=== PATIENT | female | born 1995 | race Caucasian/White ===

== ENCOUNTER → 2018-03-11 14:57 | Outpatient (CLI) | payer BC, SELFPAY | PROVIDERS: Visit Provider Obstetrics & Gynecology | DX: R30.0 Dysuria (principal) | CPT/HCPCS: 87086; 87088 ==

== ENCOUNTER → 2018-03-25 13:38 | Outpatient (CLI) | payer BC, SELFPAY | PROVIDERS: Visit Provider Obstetrics & Gynecology | DX: N39.0 Urinary tract infection, site not specified (principal) | CPT/HCPCS: 87077; 87086; 87088; 87186 ==

== ENCOUNTER → 2018-05-05 13:55 | Outpatient (CLI) | payer BC, SELFPAY | PROVIDERS: Visit Provider Obstetrics & Gynecology | DX: R30.0 Dysuria (principal); Z87.440 Personal history of urinary (tract) infections | CPT/HCPCS: 87086; 87088 ==

== ENCOUNTER 2020-06-24 23:55 | Emergency (ER) | payer BC, SELFPAY ==
[2020-06-24 23:55] VITALS: BP 119/76; PULSE 67; RESP 16; TEMP 37.1; O2SAT 98; BMI 20.2
--- NOTE | 2020-06-24 23:59 | RAD_ITS ---
STUDY: X-RAY RIGHT FOOT, TOE REASON FOR EXAM: Female, 24 years old. RIGHT 4TH TOE PAIN AFTER DROPPING HAMMER ON IT TECHNIQUE: 3 view(s) of the toe were obtained. COMPARISON: None. FINDINGS: Normal visualized metatarsus. Normal metatarsophalangeal (M.T.P) joint. Normal interphalangeal joints. There is a minimally displaced fracture of the tip of the tuft of the distal phalanx of the fourth digit. There is soft tissue edema. RAD/Toe(s) Min 2 Views IMPRESSION: There is a minimally displaced fracture of the tip of the tuft of the distal phalanx of the fourth digit. There is soft tissue edema. Electronically Signed: Kerry Lezama MD at 1:07 EDT Tel , Service support ,
--- NOTE | 2020-06-25 00:34 | ED.DCSUM_ITS ---
- ER Visit Summary Date of Service: 06/25/20 Chief Complaint: Right fourth toe pain History of Present Illness: The patient is a 24 F presenting with right fourth toe pain. Patient states she dropped a hammer on her right 4th toe several hours ago. Her tetanus immunization is up-to-date. No other injuries. Physical Examination: Vitals are stable. Patient is afebrile. Alert no acute distress. HEENT exam is unremarkable. Lungs are clear and equal bilaterally. Heart is regular rate and rhythm. Extremities right fourth toe tenderness with dorsal abrasion. Nail is intact. Normal cap refill Skin is warm and dry. No focal neurologic deficit. Remainder of exam is unremarkable. Emergency Department Course and Treatment: X-ray right toes shows there is a minimally displaced fracture of the tip of the tuft of the distal phalanx of the fourth digit. There is soft tissue edema. Toes are thomas taped and she was given a postop shoe. She is given prescription for Naprosyn. Advised to ice and elevate. Disposition: Discharge home Impression: Right fourth toe fracture This note was generated with [employer] dictation software. It may contain incorrect words, spelling, and punctuation that were not noted in review of the chart prior to signing ED Disposition - Plan for ED Patient: Instructions: ED Fx Toe Closed Prescriptions: Naproxen [Naprosyn] 500 mg PO BID PRN #20 tab Prescription Printed Referrals: Care Physician,No Primary [Primary Care Provider] -
--- NOTE | 2020-06-25 01:11 | ED.DEP ---
ED Disposition - Plan for ED Patient: Instructions: ED Fx Toe Closed Prescriptions: Naproxen [Naprosyn] 500 mg PO BID PRN #20 tablet Referrals: Care Physician,No Primary [Primary Care Provider] -
== END 2020-06-25 01:35 | disposition home or self-care (01) ==
LOC: ED 06-25 00:21
PROVIDERS: Emergency Provider Emergency Medicine
DX: S92.531A Displaced fracture of distal phalanx of right lesser toe(s), initial encounter for closed fracture (principal); W20.8XXA Other cause of strike by thrown, projected or falling object, initial encounter; Y93.9 Activity, unspecified; Y92.9 Unspecified place or not applicable; Y99.9 Unspecified external cause status; Z72.0 Tobacco use
CPT/HCPCS: 73660; 99283

== ENCOUNTER 2024-03-24 07:55 | Emergency (ER) | payer MEDICAID, SELFPAY ==
[2024-03-24 07:55] VITALS: BP 109/73; PULSE 59; RESP 14; TEMP 36.1; O2SAT 98
--- NOTE | 2024-03-24 08:04 | EX.ED.VIS.EY ---
HPI History of Present Illness Chief Complaint: Eye Problem Informant: patient Onset/Context/Timing Location: Right Eye Onset: Yesterday Narrative Narrative: Patient presents secondary to right eyelid edema. She states yesterday she developed a red painful area along the lateral portion of her right upper eyelid. She thought it was a stye has been using warm compresses. This morning she woke and her right eye was swollen shut and she had some yellow drainage. She denies wearing contacts. She has had no foreign body sensation. No vision change. PFSH PFSH Home Medications ?Medication ?Instructions ?Recorded ?Last Taken ?Type naproxen 500 mg tablet 500 mg PO BID PRN #20 tabs 06/25/20 Unknown Rx Allergy/AdvReac Type Severity Reaction Status Date / Time Penicillins (PCN) Allergy Hives Verified 03/24/24 07:56 Social History Smoking Status: Current every day smoker tobacco type: cigarettes ROS ROS ED Constitutional Constitutional ED: Denies chills or fever(s) Eyes Eyes: Reports discharge from eye(s); Denies change in vision ENT ENT ED: Reports discharge from eye(s); Denies rhinorrhea or sore throat Musculoskeletal Musculoskeletal: Denies extremity pain Integumentary Denies Abrasions or rash Neurologic Neurologic: Denies headache(s) Psychiatric Psychiatric: Denies anxiety or depression Allergic/Immunologic Allergic/Immunologic ED: Denies lip swelling or urticaria EXAM Physical Exam Const Vital Signs: 03/24/24 07:55 Temperature 97 F L Temperature Source Temporal Pulse Rate 59 L Respiratory Rate 14 Blood Pressure 109/73 Blood Pressure Mean 85 Pulse Ox 98 Oxygen Delivery Method Room Air Positive well nourished and well developed General Appearance ED: well developed HEENT HEENT Narrative: Right lateral upper eyelid is slightly edematous with evidence of a hordeolum. Slight fullness in the lower lid. Eye itself is not injected with no discharge at this time. Extraocular movements fully intact. Resp normal respiratory effort Cardio regular rate and regular rhythm GI non-tender Palpation: soft Extremity normal to inspection Neuro oriented x3 and moves all extremities MDM MDM MDM Narrative Medical decision making narrative: Patient does have evidence of a hordeolum with surrounding inflammation. We discussed use of compresses as well as ibuprofen. I will treat her with gentamicin ophthalmic drops given the yellow discharge she had earlier this morning. I also recommended using Neosporin ointment across her lashes when she goes to bed at night. She will be referred to ophthalmology if not improving. Return instructions given. Discharge Plan Triage Chief Complaint: Eye Problem ED Provider: Arabella Farmer Dx/Rx/DC Orders Clinical Impression: Hordeolum Instructions: ED Stye Prescriptions: No Action naproxen 500 MG tablet 500 mg PO BID PRN Qty: 20 0RF Primary Care Provider: Care Physician,No Primary Referrals: Neeraj Kendall MD [Med Staff - Active Staff] - As Needed Care Physician,No Primary [Primary Care Provider] - Activity Restrictions/Additional Instructions: Gentamicin eyedrops - Place 2 drops in affected eye every 6 hours while awake until symptoms resolved for 24 hours. Print Language: Citizen [place] Disposition Disposition: Home, Self Care
[2024-03-24] MEDS: Gentamicin Sulfate 1 OPTH.BTL 2 DRP RIGHT EYE (08:15)
== END 2024-03-24 08:18 | disposition home or self-care (01) ==
PROVIDERS: Emergency Provider Emergency Medicine; Visit Provider Emergency Medicine
DX: H00.011 Hordeolum externum right upper eyelid (principal); F17.210 Nicotine dependence, cigarettes, uncomplicated
CPT/HCPCS: 99282